=== PATIENT | female | born 1995 | race Caucasian/White ===

== ENCOUNTER 2017-11-06 14:15 | Day surgery (SDC) | END 2017-11-06 18:50 | disposition home or self-care (01) ==

== ENCOUNTER 2018-09-10 17:30 | Emergency (ER) | payer OTHER ==
[~2018-09-10] VITALS: Wt 108.0 kg
[~2018-09-10 17:30] MED LIST: PREN1TAB49 PO
[2018-09-10 17:34] VITALS: BP 139/71; PULSE 75; RESP 20
[2018-09-10] MEDS ORDERED: HYDR25SU23 PR (20:34)
--- NOTE | 2018-09-10 20:49 | ERD ---
ER Documentation Chief Complaint Chief Complaint rectal bleed per pt. observed red streak of blood during bm X3 today HPI 23-year-old female patient with no significant past medical history presents the ED complaining of rectal bleeding that started earlier today. Patient reports that patient had bowel movement, 3 times with streaks of bright red blood. Patient reports that she has some abdominal cramping. Denies any fever, chills, nausea, vomiting, diarrhea, neck stiffness chest pain, shortness of breath. ROS All systems reviewed and are negative except as per history of present illness. Medications Home Meds Active Scripts Hydrocortisone Acetate (Anusol-Hc) 25 Mg Supp.rect, 1 SUPP OH QHS PRN for HEMORROID PAIN/ITCHING, #12 SUPP.RECT Prov:HENRIK HURT PA-C 09/10/18 Reported Medications Vits W-Ca,Fe,Fa(<1MG) () 1 Tab Tablet, 1 TAB PO BORIS 08/16/11 Allergies Allergies: Coded Allergies: No Known Allergies (Verified Allergy, Unknown, 11/06/17) PMhx/Soc History of Surgery: Yes (C SECTION X1,neck cyst sx) Anesthesia Reaction: No Hx Neurological Disorder: No Hx Respiratory Disorders: No Hx Cardiac Disorders: No Hx Psychiatric Problems: No Hx Miscellaneous Medical Probl: No Hx Alcohol Use: Yes (occasional) Hx Substance Use: Yes (marijuana) Hx Tobacco Use: Yes (MARIJUANA) Smoking Status: Never smoker FmHx Family History: No diabetes, No coronary disease Physical Exam Vitals Vital Signs Date Temp Pulse Resp B/P (MAP) Pulse Ox O2 O2 Flow FiO2 Time Delivery Rate 09/10/18 98.3 75 20 139/71 99 17:34 (93) Physical Exam Const: [id number], well-nourished. In no acute distress. Head: Atraumatic, normocephalic Eyes: Normal Conjunctiva without injection. No purulent discharge. ENT: Normal external ear, nose. Moist oropharynx without tonsillar exudates. Non-erythematous pharynx. Uvula midline. No drooling. No trismus. Neck: No cervical midline tenderness. Full range of motion. No meningismus. No cervical lymphadenopathy. No JVD. Resp: Clear to auscultation bilaterally. No wheezing, rhonchi, rales, or crackles. No accessory muscle use. No retractions. Cardio: Regular rate and rhythm. No murmurs, rubs or gallops. Abd: Soft, nontender, non distended. Normal bowel sounds. No palpable masses. No rebound tenderness. No guarding. Negative McBurney's point. Negative psoas sign. Negative obturator sign. Skin: No petechiae or rashes Back: No midline tenderness. No CVA tenderness. Ext: No cyanosis, or edema. Neur: Awake and alert. Normal gait. Normal coordination. Psych: Normal Mood and Affect Results 24 hrs Laboratory Tests Test 09/10/18 18:13 09/10/18 18:46 09/10/18 18:52 09/10/18 18:55 Stool Occult Blood NEGATIVE White Blood Count 7.3 10^3/ul Red Blood Count 4.44 10^6/ul Hemoglobin 12.7 g/dl Hematocrit 39.7 % Mean Corpuscular 89.4 fl Volume Mean Corpuscular 28.6 pg Hemoglobin Mean Corpuscular 32.0 g/dl Hemoglobin Concent Red Cell 13.1 % Distribution Width Platelet Count 258 10^3/UL Mean Platelet 11.1 fl Volume Immature 0.300 % Granulocytes % Neutrophils % 66.9 % Lymphocytes % 24.7 % Monocytes % 6.9 % Eosinophils % 1.1 % Basophils % 0.1 % Nucleated Red Blood 0.0 /100WBC Cells % Immature 0.020 10^3/ul Granulocytes # Neutrophils # 4.9 10^3/ul Lymphocytes # 1.8 10^3/ul Monocytes # 0.5 10^3/ul Eosinophils # 0.1 10^3/ul Basophils # 0.0 10^3/ul Nucleated Red Blood 0.0 10^3/ul Cells # Sodium Level 141 mmol/L Potassium Level 4.0 mmol/L Chloride Level 103 mmol/L Carbon Dioxide 30 mmol/L Level Anion Gap 8 Blood Urea Nitrogen 12 mg/dl Creatinine 0.66 mg/dl Est Glomerular > 60 mL/min Filtrat Rate mL/min Glucose Level 92 mg/dl Calcium Level 9.7 mg/dl Total Bilirubin 0.4 mg/dl Direct Bilirubin 0.00 mg/dl Indirect Bilirubin 0.4 mg/dl Aspartate Amino 21 IU/L Transf (AST/SGOT) Alanine 32 IU/L Aminotransferase (A LT/SGPT) Alkaline 90 IU/L Phosphatase Total Protein 8.5 g/dl Albumin 4.7 g/dl Globulin 3.80 g/dl Albumin/Globulin 1.23 Ratio Lipase 35 U/L Urine Color YELLOW Urine Clarity SLIGHTLY CLOUDY Urine pH 5.0 Urine Specific 1.028 [place] Urine Ketones NEGATIVE mg/dL Urine Nitrite NEGATIVE mg/dL Urine Bilirubin NEGATIVE mg/dL Urine Urobilinogen NEGATIVE mg/dL Urine Leukocyte NEGATIVE Cristino/ul Esterase Urine Microscopic 0 /HPF RBC Urine Microscopic 1 /HPF WBC Urine Squamous FEW /HPF Epithelial Cells Urine Mucus MANY /HPF Urine Hemoglobin 2+ mg/dL Urine Glucose NEGATIVE mg/dL Urine Total Protein NEGATIVE mg/dl POC Beta HCG, NEGATIVE Qualitative Procedures/MDM 23 year old female patient with no significant past medical history presents to the ED complaining of blood streak stools that started earlier today. Patient was further worked up with CBC, CMP, lipase, UA, urine . CBC: No leukocytosis. No e/o of systemic infection. No e/o anemia. CMP: No e/o severe acidosis, alkalosis, renal failure, diabetic ketoacidosis, liver disease Lipase within normal limits. Urine: No leukocyte esterase, no nitrites, 2+ hematuria. Urine : Negative Patient has rectal bleeding but stool occult blood negative. Low suspicion for ectopic , ovarian torsion, gastritis, GERD, peptic ulcer disease, cholecystitis, choledocholithiasis, cholangitis, pancreatitis, appendicitis, bowel obstruction, ileus, volvulus, nephrolithiasis, pyelonephritis, hepatitis, perforated viscus, diverticulitis, strangulated/incarcerated hernia, DKA, acute abdomen, mesenteric ischemia or other emergent conditions. Diagnosis: Rectal Bleeding Discharge medications: Anusol Follow up with primary care physician in 1-2 days for a referral to see a cost estimating engineer for a colonoscopy. Instructed patient to return to the ED sooner for any worsening symptoms. Patient's questions were answered. Patient is hemodynamically stable. Patient understood and agreed with discharge plan. Patient discharged stable. Disclaimer: Inadvertent spelling and grammatical errors are likely due to EHR/dictation software use and do not reflect on the overall quality of patient care. Also, please note that the electronic time recorded on this note does not necessarily reflect the actual time of the patient encounter. Departure Diagnosis: Primary Impression: Rectal bleeding Condition: Stable Patient Instructions: Evaluating and Treating Rectal Bleeding Referrals: COMMUNITY CLINICS YOU HAVE RECEIVED A MEDICAL SCREENING EXAM AND THE RESULTS INDICATE THAT YOU DO NOT HAVE A CONDITION THAT REQUIRES URGENT TREATMENT IN THE EMERGENCY DEPARTMENT. FURTHER EVALUATION AND TREATMENT OF YOUR CONDITION CAN WAIT UNTIL YOU ARE SEEN IN YOUR DOCTORS OFFICE WITHIN THE NEXT 1-2 DAYS. IT IS YOUR RESPONSIBILITY TO MAKE AN APPOINTMENT FOR FOLOW-UP CARE. IF YOU HAVE A PRIMARY DOCTOR --you should call your primary doctor and schedule an appointment IF YOU DO NOT HAVE A PRIMARY DOCTOR YOU CAN CALL OUR PHYSICIAN REFERRAL HOTLINE AT IF YOU CAN NOT AFFORD TO SEE A PHYSICIAN YOU CAN CHOSE FROM THE FOLLOWING [facility] [address] [facility] [address] [facility]. [facility] [address] [facility] [facility] [address] [facility] [facility] [address] [facility]. [facility] [address] [facility]. [facility] [address] [facility]. [facility] YOU HAVE RECEIVED A MEDICAL SCREENING EXAM AND THE RESULTS INDICATE THAT YOU DO NOT HAVE A CONDITION THAT REQUIRES URGENT TREATMENT IN THE EMERGENCY DEPARTMENT. FURTHER EVALUATION AND TREATMENT OF YOUR CONDITION CAN WAIT UNTIL YOU ARE SEEN IN YOUR DOCTORS OFFICE WITHIN THE NEXT 1-2 DAYS. IT IS YOUR RESPONSIBILITY TO MAKE AN APPOINTMENT FOR FOLOW-UP CARE. IF YOU HAVE A PRIMARY DOCTOR --you should call your primary doctor and schedule and appointment IF YOU DO NOT HAVE A PRIMARY DOCTOR YOU CAN CALL OUR PHYSICIAN REFERRAL HOTLINE AT . IF YOU CAN NOT AFFORD TO SEE A PHYSICIAN YOU CAN CHOSE FROM THE FOLLOWING [facility] INSTIT[facility]: [facility] [address] [place] [address] [facility] [address] [place] [address] [facility] + [facility] [address] [place] [address] [facility] URGENT CARE/SPECIALTIES Additional Instructions: Call your primary care doctor TOMORROW for an appointment during the next 2-3 days for a cost estimating engineer. See the doctor sooner or return here if your condition worsens before your appointment time. HENRIK HURT PA-C Sep 10, 2018 20:49
== END 2018-09-10 21:16 | disposition left against medical advice (07) ==
LOC: FTE 17:30
DX: K62.5 Hemorrhage of anus and rectum (principal)
CPT/HCPCS: 36415; 80053; 81001; 81025; 82270; 83690; 85025; 99283